=== PATIENT | male | born 1980 | race Caucasian/White ===

== ENCOUNTER 2017-10-14 23:37 | Inpatient (IN) ==
[2017-10-15 00:23] LABS: INR 1.1; PT Patient Result 11.3 SECS; Partial Thromboplastin Time 25.8 SECS (0-40)
[2017-10-15 00:33] LABS: Albumin 4.2 G/DL (3.4-5.0); Bilirubin,Total 3.2 MG/DL (0.2-1.0); Osmolality,Calculated 251.4 MOS/KG (273-304); Total Protein 8.3 G/DL (6.4-8.3)
[2017-10-15 00:39] LABS: Potassium 2.2 MMOL/L (3.5-5.1)
[2017-10-15] MEDS ORDERED: SODIUM CHLORIDE 0.9% 1,000 ML IV STA (00:48)
[2017-10-15] MEDS ORDERED: LORazepam 2 MG/1 ML VIAL IV STA (00:48)
[2017-10-15 00:57] LABS: Basophils % 0.2 % (0.0-0.8); Hematocrit 43.6 VOL% (42.0-52.0); Hemoglobin 16.9 GM/DL (14.0-18.0); Immature Granulocytes % 0.3 %; Immature Granulocytes Absolute 0.02 #; Lymphocytes # 1.1 10*3/uL (1.4-4.0); Lymphocytes % 16.7 % (21.2-54.2); Mean Corpuscular HGB Conc 38.8 GM/DL (32-36); Mean Corpuscular Hemoglobin 33 PG (27-34); Mean Corpuscular Volume 85.3 FL (87-102); Mean Platelet Volume 12.2 FL (9.6-12.0); Monocytes % 16.1 % (1.7-12.7); Neutrophils # 4.3 10*3/uL (1.4-7.4); Neutrophils % 66.7 % (38.7-73.9); Platelet Count 116 T/CUMM (130-400); Red Blood Count 5.11 MC/CUMM (3.8-5.5); Red Cell Distribution Width 11.6 % (9.3-17.3); White Blood Count 6.5 T/CUMM (4-12)
[2017-10-15 01:14] LABS: Band Neutrophils 4 % (0-10); Lymphocytes 24 % (20-55); Platelet Estimate Decreased; Segmented Neutrophils 66 % (50-85); Total Cells Counted 100
[2017-10-15 01:15] LABS: Microcytosis Slight
[2017-10-15] MEDS ORDERED: POTASSIUM CHLORIDE 20 MEQ TABLET PO STA ×2 (02:18→02:19)
[2017-10-15] MEDS ORDERED: POTASSIUM BICARB EFFERVESCENT 25 MEQ TABLET PO STA (02:28)
[2017-10-15 02:44] LABS: Barbiturates Screen,Urine Negative (Negative); Benzodiazepines Screen,Urine Negative (Negative); Cannabinoid Screen,Urine Negative (Negative); Opiate Screen,Urine Negative (Negative); Phencyclidine Screen,Urine Negative (Negative)
[2017-10-15] MEDS ORDERED: ACETAMINOPHEN 325 MG TABLET PO PRN (03:30)
[2017-10-15] MEDS: SODIUM CHLORIDE 0.9% 1,000 ML IV SCH ×3 (03:30→20:43)
[2017-10-15] MEDS ORDERED: METOPROLOL TARTRATE 5 MG/5 ML VIAL IV ONE ×2 (03:33→04:32)
[2017-10-15] MEDS ORDERED: ADENOSINE 6 MG/2 ML VIAL ONE ×2 (03:33→03:42)
[2017-10-15] MEDS ORDERED: POTASSIUM CHLORIDE 20 MEQ TABLET PO PRN (03:35)
[2017-10-15] MEDS ORDERED: DILTIAZEM 50 MG/10 ML VIAL IV ONE (03:47)
[2017-10-15] MEDS ORDERED: NITROGLYCERIN SL 0.4 MG TABLET SL ONE (03:52)
[2017-10-15] MEDS: THIAMINE INJ 100 MG, FOLIC ACID INJ 1 MG, MULTIVITAMIN INJ 10 ML in SODIUM CHLORIDE 0.9... IV SCH (04:29)
[2017-10-15] MEDS ORDERED: METOPROLOL TARTRATE 25 MG TABLET PO ONE (04:30)
[2017-10-15 07:04] LABS: Calcium 8.8 MG/DL (8.5-10.1); Osmolality,Calculated 255.9 MOS/KG (273-304); Potassium 3.6 MMOL/L (3.5-5.1)
[2017-10-15] MEDS ORDERED: METOPROLOL TARTRATE 25 MG TABLET PO SCH ×2 (09:00)
[2017-10-15] MEDS ORDERED: MULTIVITAMIN PO SCH (09:00)
[2017-10-15] MEDS: PANTOPRAZOLE 40 MG TABLET PO SCH (10:55)
[2017-10-15] MEDS ORDERED: ZALEPLON 5 MG CAPSULE PO PRN (16:57)
[2017-10-15] MEDS: METOPROLOL TARTRATE 50 MG TABLET PO SCH (20:42)
[2017-10-16] MEDS: THIAMINE INJ 100 MG, FOLIC ACID INJ 1 MG, MULTIVITAMIN INJ 10 ML in SODIUM CHLORIDE 0.9... IV SCH (04:20)
[2017-10-16] MEDS: SODIUM CHLORIDE 0.9% 1,000 ML IV SCH ×2 (04:53→17:03)
[2017-10-16 05:58] LABS: Basophils % 0.7 % (0.0-0.8); Eosinophils % 0.7 % (0.00-10.9); Hematocrit 37.9 VOL% (42.0-52.0); Hemoglobin 13.9 GM/DL (14.0-18.0); Immature Granulocytes % 0.5 %; Immature Granulocytes Absolute 0.02 #; Lymphocytes % 23.7 % (21.2-54.2); Mean Corpuscular HGB Conc 36.7 GM/DL (32-36); Mean Corpuscular Hemoglobin 33 PG (27-34); Mean Corpuscular Volume 91.1 FL (87-102); Mean Platelet Volume 11.9 FL (9.6-12.0); Monocytes # 0.7 10*3/uL (0.11-0.8); Monocytes % 17.1 % (1.7-12.7); Neutrophils # 2.5 10*3/uL (1.4-7.4); Neutrophils % 57.3 % (38.7-73.9); Platelet Count 81 T/CUMM (130-400); Red Blood Count 4.16 MC/CUMM (3.8-5.5); Red Cell Distribution Width 11.9 % (9.3-17.3); White Blood Count 4.3 T/CUMM (4-12)
[2017-10-16 06:23] LABS: Atypical Lymphocytes Few; Eosinophils 1 % (0-10); Lymphocytes 32 % (20-55); Segmented Neutrophils 58 % (50-85); Total Cells Counted 100
[2017-10-16 06:24] LABS: Hypochromasia Slight; Microcytosis 1+; Platelet Estimate Decreased
[2017-10-16 06:28] LABS: Calcium 8.9 MG/DL (8.5-10.1); Osmolality,Calculated 271.7 MOS/KG (273-304); Potassium 2.8 MMOL/L (3.5-5.1)
[2017-10-16 06:32] LABS: Albumin 3.1 G/DL (3.4-5.0); Bilirubin,Total 2.7 MG/DL (0.2-1.0); Calcium 8.6 MG/DL (8.5-10.1); Osmolality,Calculated 273.5 MOS/KG (273-304); Potassium 2.8 MMOL/L (3.5-5.1); Total Protein 6.5 G/DL (6.4-8.3)
[2017-10-16 06:36] LABS: % Iron Saturation 44.9 % (18-50)
[2017-10-16 07:00] LABS: Folate > 24.0 NG/ML (5.4-24.0); Vitamin B12 670 PG/ML (211-911)
[2017-10-16 08:47] LABS: Sedimentation Rate-Westergren 19 MM/HR (0-15)
[2017-10-16] MEDS: METOPROLOL TARTRATE 50 MG TABLET PO SCH ×2 (09:24→21:26)
[2017-10-16] MEDS: PANTOPRAZOLE 40 MG TABLET PO SCH (09:25)
[2017-10-16] MEDS: POTASSIUM CHLORIDE 20 MEQ/15 ML UDCUP PER TUBE PRN ×4 (09:25→16:02)
[2017-10-16 09:43] LABS: Hemoglobin A1 (Alkaline) 97.9 % (96.5-98.5); Hemoglobin A2 (Alkaline) 2.1 % (1.5-3.5)
[2017-10-16] MEDS ORDERED: LISINOPRIL 5 MG TABLET PO SCH (13:00)
[2017-10-16] MEDS: ASPIRIN EC 81 MG TABLET PO SCH (13:40)
[2017-10-16] MEDS: LISINOPRIL 10 MG TABLET PO SCH (16:00)
[2017-10-16] MEDS ORDERED: LABETALOL 20 MG/4 ML SYRINGE IV PRN (16:08)
[2017-10-16] MEDS ORDERED: HALOPERIDOL 5 MG/ML AMP IV PRN (16:10)
[2017-10-16] MEDS ORDERED: LABETALOL 100 MG/20 ML VIAL IV PRN (17:00)
[2017-10-16] MEDS: chlordiazePOXIDE 25 MG CAPSULE PO SCH ×2 (17:04→22:15)
[2017-10-16] MEDS: LORazepam 2 MG/1 ML VIAL IV PRN ×2 (17:05→21:26)
[2017-10-17] MEDS: SODIUM CHLORIDE 0.9% 1,000 ML IV SCH ×2 (01:09→12:56)
[2017-10-17] MEDS: THIAMINE INJ 100 MG, FOLIC ACID INJ 1 MG, MULTIVITAMIN INJ 10 ML in SODIUM CHLORIDE 0.9... IV SCH (04:15)
[2017-10-17] MEDS: chlordiazePOXIDE 25 MG CAPSULE PO SCH ×2 (04:24→12:56)
[2017-10-17 05:36] LABS: Basophils % 0.8 % (0.0-0.8); Eosinophils % 0.8 % (0.00-10.9); Hematocrit 37.3 VOL% (42.0-52.0); Hemoglobin 13.2 GM/DL (14.0-18.0); Immature Granulocytes % 0.6 %; Immature Granulocytes Absolute 0.03 #; Lymphocytes % 21.1 % (21.2-54.2); Mean Corpuscular HGB Conc 35.4 GM/DL (32-36); Mean Corpuscular Hemoglobin 33 PG (27-34); Mean Corpuscular Volume 93.7 FL (87-102); Mean Platelet Volume 11.7 FL (9.6-12.0); Monocytes # 0.9 10*3/uL (0.11-0.8); Monocytes % 18.3 % (1.7-12.7); Neutrophils # 2.8 10*3/uL (1.4-7.4); Neutrophils % 58.4 % (38.7-73.9); Platelet Count 92 T/CUMM (130-400); Red Blood Count 3.98 MC/CUMM (3.8-5.5); Red Cell Distribution Width 11.9 % (9.3-17.3); White Blood Count 4.8 T/CUMM (4-12)
[2017-10-17 05:48] LABS: Calcium 8.8 MG/DL (8.5-10.1); Osmolality,Calculated 276.4 MOS/KG (273-304); Potassium 3.4 MMOL/L (3.5-5.1)
[2017-10-17 05:56] LABS: Risk Ratio 2.36; VLDL CHOLESTEROL 11.8 MG/DL
[2017-10-17 06:10] LABS: Band Neutrophils 4 % (0-10); Eosinophils 2 % (0-10); Hypochromasia 1+; Lymphocytes 22 % (20-55); Platelet Estimate Decreased; Segmented Neutrophils 61 % (50-85); Total Cells Counted 100
[2017-10-17] MEDS: POTASSIUM CHLORIDE 20 MEQ/15 ML UDCUP PER TUBE PRN (06:10)
[2017-10-17 06:11] LABS: Atypical Lymphocytes Few; Microcytosis Slight
[2017-10-17] MEDS: LISINOPRIL 10 MG TABLET PO SCH (08:51)
[2017-10-17] MEDS: ASPIRIN EC 81 MG TABLET PO SCH (08:51)
[2017-10-17] MEDS: METOPROLOL TARTRATE 50 MG TABLET PO SCH (08:52)
[2017-10-17] MEDS: PANTOPRAZOLE 40 MG TABLET PO SCH (08:52)
[2017-10-17] MEDS ORDERED: POTASSIUM CHLORIDE 20 MEQ TABLET PO SCH (09:00)
[2017-10-17] MEDS ORDERED: CARVEDILOL 25 MG TABLET PO SCH (09:30)
[2017-10-17 11:51] VITALS: BP 160/110
== END 2017-10-17 13:15 | disposition home or self-care (01) | DRG 309 ==
LOC: N.ED 23:37 → INTOOBSV 10-15 03:30 → OBSVTOIN 10-15 03:30 → SUATTDRO 10-15 04:21 → N.EDINP 10-15 04:21 → N.TELEN 10-15 08:43
PROVIDERS: ADMIT Internal Medicine; ATTEND Hospitalist